=== PATIENT | female | born 1990 | race African-American/Black ===

== ENCOUNTER 2022-01-17 16:48 | Emergency (ER) | payer MEDICAID ==
[~2022-01-17] VITALS: Ht 160 cm; Wt 150.0 kg
[~2022-01-17 16:48] MED LIST: FERR256T PO; FOLI-43 PO; PREN1TAB23 PO
[2022-01-17 17:06] VITALS: BP 164/100
== END 2022-01-17 20:37 | disposition home or self-care (01) ==
LOC: ER 16:48
DX: S69.81XA Other specified injuries of right wrist, hand and finger(s), initial encounter (principal); M25.511 Pain in right shoulder; M25.521 Pain in right elbow; V49.49XA Driver injured in collision with other motor vehicles in traffic accident, initial encounter; Y93.89 Activity, other specified; Y92.488 Other paved roadways as the place of occurrence of the external cause
CPT/HCPCS: 73030; 73080; 73130; 99284